=== PATIENT | female | born 1945 | race Caucasian/White ===

== ENCOUNTER → 2018-09-11 | Outpatient (CLI) | payer MEDICARE, OTHER ==
--- NOTE | 2018-09-11 18:02 | CARDNUC ---
[place] [address] CARDIAC NUCLEAR IMAGING REPORT Name: DARCIE MCINTOSH Room: [facility]#: [id number] Admission: 09/11/18 Attend Phys: Whitney Partida, Discharge: Date of : 41 Date of Service: 09/11/181801 Report #: [id number] THIS REPORT FOR: //name// APPROVED REPORT Study performed: 09/11/2018 12:45:00 Indication: Chest pain Patient Location: Out-Patient Stress Tech: [facility] Stress Nurse: Karen Mccormack RN Ht: 5 ft 6 in Wt: 159 lbs BSA: 1.81 m2 BMI: 25.66 Medical History Medical History: factor v leiden,hyperlipidemia, hypertension Medications: simvastatin, warfarin, metoprolol Allergies: corticosteroids, morphine, nsaids, statins, sudafed Cardiac Risk Factors: age, hyperlipidemia, hypertension, factor v leiden, family hx Exercise History: Physically active Meds Held (24 hrs): metoprolol Resting Data Rest SPECT myocardial perfusion imaging was performed in supine position 30 minutes following the intravenous injection of 11.6 mCi of Tc-99m Sestamibi. Time of rest injection: 12:55 The images were gated to evaluate regional wall motion and calculate left ventricular ejection fraction. Administration Route: IV Administration Site: Right AC Pharmacologic Stress Pharmacologic stress test was performed by injecting Regadenoson 0.4 mg IV push over 10-15 seconds immediately followed by the intravenous injection of 36.0 mCi of Tc-99m Sestamibi. Time of stress injection: 14:15 Administration Route: IV Administration Site: Right AC Heart Rate at time of stress injection: 81 bpm. Gated Stress SPECT was performed 40 [place] [address] CARDIAC NUCLEAR IMAGING REPORT Name: TRACEEBensonDARCIE Room: [facility]#: [id number] Admission: 09/11/18 Attend Phys: Whitney Partida, Discharge: Date of : 41 Date of Service: 09/11/18 1802 Report #: [id number] injection. The images were gated to evaluate regional wall motion and calculate left ventricular ejection fraction. Prone imaging was performed. Stress Test Details Stress Test: Pharmacologic stress testing performed using 0.4 mg of regadenoson per 5 mL given IV over 10 seconds. Reason for pharmacologic stress test: physical limitation. HR Max Heart Rate (APMHR): 145 bpm Resting HR: 81 bpm Target HR (85% APMHR): 123 bpm Max HR Achieved: 81 bpm % of APMHR: 55 Recovery HR: 80 bpm BP Resting BP: 127/93 mmHg Max BP: 140/91 mmHg Recovery BP: 124/84 mmHg ECG Resting ECG: Sinus Rhythm Stress ECG: Sinus Rhythm ST Change: None Arrhythmia: None Recovery ECG: Sinus Rhythm Recovery ST Change: None Recovery Arrhythmia: None Clinical Reason for Termination: Completed protocol The patient tolerated Lexiscan infusion without significant symptoms. Stress ECG Conclusion The baseline 12-lead EKG shows sinus rhythm with no significant ST or T wave abnormality. His obtained during and post Lexiscan infusion show sinus rhythm with no significant ST or T wave changes when compared to baseline. Study Quality Study: Fair Artifact: Mild Breast artifact Study Data At rest, the left ventricular ejection fraction was 88%.. [place] [address] CARDIAC NUCLEAR IMAGING REPORT Name: DARCIE MCINTOSH Room: [facility]#: [id number] Admission: 09/11/18 Attend Phys: Whitney Partida, Discharge: Date of : 41 Date of Service: 09/11/181801 Report #: [id number] Post stress, the left ventricular ejection was 90%.. TID = 1.10. Perfusion Myocardial perfusion images obtained in the supine position at rest and post stress show some attenuation artifact. Post stress prone imaging shows uniform uptake of the radioisotope throughout the myocardium without defect. Wall Motion Normal left ventricular wall motion. Nuclear Conclusion ECG Findings: negative for ischemia Clinical Findings: negative for ischemia Nuclear Findings: negative for ischemia Exercise Capacity: not assessed Left Ventricular Function: normal Risk Study: low Myocardial perfusion images show no defect to suggest ischemia or infarct. Left ventricular systolic function appears normal on gated studies. This is a low risk study. <Conclusion> The baseline 12-lead EKG shows sinus rhythm with no significant ST or T wave abnormality. His obtained during and post Lexiscan infusion show sinus rhythm with no significant ST or T wave changes when compared to baseline. <ELECTRONICALLY SIGNED> By: Elías Caceres MD, FACC 09/11/181801 01 01 Elías Caceres MD, FACC /INF
== END ==
LOC: M.NUC 08-21 16:26
DX: R07.89 Other chest pain (principal); E78.5 Hyperlipidemia, unspecified; I10 Essential (primary) hypertension; Z88.8 Allergy status to other drugs, medicaments and biological substances; Z82.49 Family history of ischemic heart disease and other diseases of the circulatory system; Z79.01 Long term (current) use of anticoagulants; Z79.899 Other long term (current) drug therapy; Z88.6 Allergy status to analgesic agent